=== PATIENT | female | born 1960 | race Caucasian/White ===

== ENCOUNTER 2018-01-10 06:54 | Outpatient (CLI) | payer OTHER | END 2018-01-10 14:50 | disposition home or self-care (01) | LOC: MRI 06:54 | DX: K76.89 Other specified diseases of liver (principal) | CPT/HCPCS: 74183 ==

== ENCOUNTER 2018-01-12 05:30 | Day surgery (SDC) | payer OTHER | END 2018-01-12 14:10 | disposition home or self-care (01) | LOC: CIR.AMB 05:30 | DX: K80.10 Calculus of gallbladder with chronic cholecystitis without obstruction (principal) ==

== ENCOUNTER 2018-04-17 15:24 | Emergency (ER) | payer OTHER ==
[~2018-04-17] VITALS: Ht 157.5 cm; Wt 73.5 kg
[2018-04-17] MEDS ORDERED: TOPROL XL50 M1 PO (15:50)
[2018-04-17] MEDS ORDERED: ATORVASTATIN CA10 MG PO (15:50)
[2018-04-17] MEDS ORDERED: ALLEGRA ALLERG180 MG PO (15:50)
[2018-04-17] MEDS ORDERED: ZYRTEC10 M3 PO (15:50)
[2018-04-17] MEDS ORDERED: LOSARTAN-HCTZ1 EAC2 PO (15:50)
== END 2018-04-17 19:02 | disposition home or self-care (01) ==
LOC: ER 15:24
DX: S00.83XA Contusion of other part of head, initial encounter (principal); W18.39XA Other fall on same level, initial encounter; Y93.89 Activity, other specified; Y92.89 Other specified places as the place of occurrence of the external cause; Y99.8 Other external cause status